=== PATIENT | male | born 1970 | race Caucasian/White ===

== ENCOUNTER 2019-12-18 09:05 | Emergency (ER) | payer SELFPAY ==
[~2019-12-18] VITALS: Ht 180.3 cm; Wt 79.4 kg
[2019-12-18 09:07] VITALS: BP 134/97
[2019-12-18] MEDS ORDERED: TETRACAINE HCL 0.5% OPTH(EYE) SOLN 4ML EACHEYE ONE (10:00)
[2019-12-18] MEDS ORDERED: FLUORESCEIN SOD 1 MG TEST STRIP EACHEYE ONE (10:00)
[2019-12-18] MEDS ORDERED: HYDROcodone-ACET 5/325MG TAB PO ONE (10:45)
== END 2019-12-18 10:51 | disposition home or self-care (01) ==
LOC: ER 09:05
DX: S00.252A Superficial foreign body of left eyelid and periocular area, initial encounter (principal); I10 Essential (primary) hypertension; Z88.1 Allergy status to other antibiotic agents; X58.XXXA Exposure to other specified factors, initial encounter; Y93.89 Activity, other specified; Y99.8 Other external cause status; Y92.89 Other specified places as the place of occurrence of the external cause
CPT/HCPCS: 65220